=== PATIENT | female | born 1955 | race African-American/Black ===

== ENCOUNTER 2018-03-06 19:52 | Emergency (ER) | payer SELFPAY ==
[2018-03-06 20:01] VITALS: BP 164/87; PULSE 76; TEMP 98.5; BMI 25.0
--- NOTE | 2018-03-06 20:01 | PDOC ---
Rapid Medical Evaluation Chief Complaint: Pain Time Seen by Provider: 03/06/18 19:57 Medical Evaluation: Allergies Allergy/AdvReac Type Severity Reaction Status Date / Time No Known Allergies Allergy Verified 09/22/15 20:27 03/06/18 19:58 CC: Right leg pain and bilateral hand and foot pain. HPI: Pt is a 62 YO female who states that she has "burning" on the tips of her fingers and feet x "months." Pt describes it as burning and rates it at a 5/ 10. Pt also complains of right leg pain x "months." Denies injury/trauma. I have performed a brief in- person evaluation of this patient. Pertinent Physical Findings: Skin: Clear Lungs: Clear Heart: RRR Neuro: Alert Psych: Appropriate affect The patient will proceed to: [facility] for further evaluation Discharge Disposition - Diagnosis Neuropathy - Referrals - Patient Instructions - Post Discharge Activity
[2018-03-06] MEDS ORDERED: diazePAM 5 MG TABLET PO ONE (21:13)
[2018-03-06] MEDS ORDERED: GABAPENTIN 300 MG CAPSULE (FP) PO ONE (21:13)
[2018-03-06] MEDS ORDERED: diazePAM 5 MG TABLET ONE (21:16)
--- NOTE | 2018-03-06 21:18 | PDOC ---
History of Present Illness - General Chief Complaint: Pain Stated Complaint: LEG PAIN Time Seen by Provider: 03/06/18 19:57 History Source: Patient, Old Records Exam Limitations: No Limitations - History of Present Illness Initial Comments: 03/06/18 21:14 HISTORY OF PRESENT ILLNESS: This is a 62-year-old woman with past medical history of hypertension, spinal stenosis, multiple herniated disks presents emergency Department with bilateral hand pain and right foot pain. Patient states the pain is consistent with her usual neuropathy. Patient states she was seen by her primary doctor yesterday and was told she needed evaluation by a spinal surgeon. Patient states she has been refusing A spinal surgeon for the past 7 years but now states willingness to be evaluated. Patient is been taking all of her previously prescribed medication with minimal relief of pain. She denies any saddle anesthesia, urinary retention, incontinence of bladder or bowel. No recent travel or sick contacts. PAST MEDICAL HISTORY: see HPI SURGICAL HISTORY: Denies ALLERGIES: No known drug allergies REVIEW OF SYSTEMS General/Constitutional: Denies fever or chills. Denies weakness, weight change. HEENT: Denies change in vision. Denies ear pain or discharge. Denies sore throat. Cardiovascular: Denies chest pain or shortness of breath. Respiratory: Denies cough, wheezing, or hemoptysis. Gastrointestinal: Denies nausea, vomiting, diarrhea or constipation. Denies rectal bleeding. Genitourinary: Denies dysuria, frequency, or change in urination. Musculoskeletal: Denies joint or muscle swelling or pain. Denies neck or back pain. Skin and breasts: Denies rash or easy bruising. Neurologic: Denies headache, vertigo, loss of consciousness, or loss of sensation. Tingling pain to b/l palms and sole of right foot. Psychiatric: Denies depression or anxiety. Endocrine: Denies increased thirst. Denies abnormal weight change. Hematologic/Lymphatic: Denies anemia, easy bleeding, or history of blood clots. Allergic/Immunologic: Denies hives or skin allergy. Denies latex allergy. PHYSICAL EXAM General Appearance: Well-appearing, appropriately dressed. No apparent distress , no intoxication. HEENT: EOMI, PERRLA, normal ENT inspection, normal voice, TMs normal, pharynx normal. No conjunctival pallor. No photophobia, scleral icterus. Neck: Supple. Trachea midline. No tenderness, rigidity, carotid bruit, stridor , lymphadenopathy, or thyromegaly. Respiratory/Chest: Lungs CTAB. No shortness of breath, chest tenderness, respiratory distress, accessory muscle use. No crackles, rales, rhonchi, stridor , wheezing, dullness Cardiovascular: RRR. S1, S2. No JVD, murmur, bradycardia, tachycardia. Vascular Pulses: Dorsalis-Pedis (R): 2+, Dorsalis-Pedis (L): 2+ Gastrointestinal/Abdominal: Normal bowel sounds. Abdomen soft, non-distended. No tenderness or rebound tenderness. No organomegaly, pulsatile mass, guarding, hernia, hepatomegaly, splenomegaly. Lymphatic: No adenopathy, tenderness. Musculoskeletal/Extremities: Normal inspection. FROM of all extremities, normal capillary refill. Pelvis Stable. No CVA tenderness. No tenderness to extremities, pedal edema, swelling, erythema or deformity. Integumentary: Appropriate color, dry, warm. No cyanosis, erythema, jaundice or rash Neurologic: pier hand II-XII intact. Fully oriented, alert. Appropriate mood/affect. Motor strength 5/5. No appreciable EOM palsy, facial droop or sensory deficit. Past History - Past Medical History Allergies/Adverse Reactions: Allergies Allergy/AdvReac Type Severity Reaction Status Date / Time No Known Allergies Allergy Verified 03/06/18 20:00 Home Medications: Ambulatory Orders Lisinopril [Prinivil] 10 mg PO DAILY 02/08/15 Asthma: Yes Cardiac Disorders: Yes COPD: No HTN: Yes Hypercholesterolemia: Yes - Immunization History Td Vaccination: Yes - Suicide/Smoking/Psychosocial Hx Smoking Status: Yes Smoking History: Never smoked Have you smoked in the past 12 months: Yes Number of Cigarettes Smoked Daily: 10 'Breaking Loose' booklet given: 03/22/14 Hx Alcohol Use: No Drug/Substance Use Hx: No Substance Use Type: None *Physical Exam - Vital Signs Last Vital Signs Temp Pulse Resp BP Pulse Ox 98.5 F 76 18 164/87 98 03/06/18 19:57 03/06/18 19:57 03/06/18 19:57 03/06/18 19:57 03/06/18 19:57 Medical Decision Making - Medical Decision Making 03/06/18 21:14 A/P: 62-year-old woman history of hypertension and spinal stenosis here with acute on chronic pain to bilateral hands and right foot Full Sensation noted to bilateral lower extremities and bilateral upper extremities Ambulatory with steady gait. Full sensation noted to bilateral buttocks Neurontin 300 mg Valium 5 mg orally Discharge home to follow-up with her primary doctor and spinal surgeon *DC/Admit/Observation/Transfer Diagnosis at time of Disposition: Neuropathy - Discharge Dispostion Disposition: HOME Condition at time of disposition: Stable Decision to Admit order: No - Referrals Referrals: Guille Davis MD [Primary Care Provider] - Noman Downing MD, FAANS [Staff Physician] - - Patient Instructions Additional Instructions: Call your health insurance company in the morning to find a spinal surgeon that in network. Follow-up to primary doctor for possible change in your current pain management until he can be evaluated by spinal surgeon. Return to emergency department for any concerns. - Post Discharge Activity Forms/Work/School Notes: Back to Work
== END 2018-03-06 21:31 | disposition home or self-care (01) ==
LOC: JERFT 19:52
DX: G62.9 Polyneuropathy, unspecified (principal); I10 Essential (primary) hypertension; E78.00 Pure hypercholesterolemia, unspecified; M48.00 Spinal stenosis, site unspecified
CPT/HCPCS: 99281-25

== ENCOUNTER 2018-03-07 19:14 | Emergency (ER) | payer SELFPAY ==
[2018-03-07 19:20] VITALS: BP 153/92; PULSE 114; TEMP 98.7; BMI 25.7
--- NOTE | 2018-03-07 19:20 | PDOC ---
Rapid Medical Evaluation Time Seen by Provider: 03/07/18 19:17 Medical Evaluation: Allergies Allergy/AdvReac Type Severity Reaction Status Date / Time No Known Allergies Allergy Verified 03/06/18 20:00 03/07/18 19:17 I have performed a brief in-person evaluation of this patient. The patient presents with a chief complaint of: bleeding to roof of mouth Pertinent physical exam findings: abrasion to hard palate under dentures I have ordered the following: nothing The patient will proceed to the ED for further evaluation. Discharge Disposition - Diagnosis Bleeding in mouth - Referrals - Patient Instructions - Post Discharge Activity
--- NOTE | 2018-03-07 21:49 | PDOC ---
Attending Attestation - HPI HPI: 03/07/18 22:39 The patient is a 62 year old female with past medical history significant for hypertension, spinal stenosis, multiple herniated disks presents to the emergency department with bleeding from the mouth. The patient states she woke up a mouth full of blood, denies trauma or injury to the mouth. Denies airway complication, nausea or vomiting. Allergies: NKA PCP: Guille Davis MD - Physicial Exam PE: 03/07/18 22:43 GENERAL: The patient is in no acute distress. HEAD: Normal with no signs of trauma. EYES: PERRLA, EOMI, sclera anicteric, conjunctiva clear. ENT: Mouth: Center of the hard palate active bleeding, puncture wound with unclear source of the injury, continue bleeding, patient is missing teeth, tobacco on breath. Ears normal, nares patent. Moist mucous membranes. NECK: Normal range of motion, supple without lymphadenopathy, JVD, or masses. LUNGS: Breath sounds equal, clear to auscultation bilaterally. No wheezes, and no crackles. HEART: Tachycardia. Regular rate and rhythm, normal S1 and S2 without murmur, rub or gallop. ABDOMEN: Soft, nontender, normoactive bowel sounds. No guarding, no rebound. No masses palpable. EXTREMITIES: Normal range of motion, no edema. No clubbing or cyanosis. No erythema, or tenderness. NEUROLOGICAL: Alert and Oriented. Cranial nerves II through XII grossly intact. Normal speech. No focal neurological deficits. MUSCULOSKELETAL: Back non-tender to palpation, no CVA tenderness SKIN: Warm, Dry, normal turgor, no rashes or lesions noted. - Medical Decision Making 03/07/18 22:43 Documentation prepared by Nancy Grajeda, acting as esthetician and manager medical spa for Marcela Crews MD. <Nancy Grajeda - Last Filed: 03/07/18 22:39> - Resident Resident Name: Gregorio Jo - ED Attending Attestation I have performed the following: I have examined & evaluated the patient, The case was reviewed & discussed with the resident, I agree w/resident's findings & plan - HPI HPI: 03/07/18 22:10 Pt has a laceration on her hard palate; it is bleeding nonstop; she vomited up 5 cups of blood and we can control only with pressure. Unable to maintain hemostasis despite gauze and surgeicel. 03/07/18 22:12 - Medical Decision Making 03/07/18 22:22 Our ENT oracle identity management consultant is recommending OMFS at [facility]. We will transer to the [place]. 03/07/18 23:00 I tried transfering to [facility]. No dental oracle identity management consultant ; only plastics and they do not feel comfortable taking the patient. I am now transferring to [facility] [place]. 03/08/18 00:44 We controlled the bleeding with SQ epinephrine. Pt refusing transfer and she wants to go home. <Marcela Crews - Last Filed: 03/08/18 00:44>
[2018-03-07 22:21] LABS: HEMATOCRIT 38.6 % (32.4-45.2); HEMOGLOBIN 12.5 GM/dL (10.7-15.3); MCH 30.5 pg (25.7-33.7); MCHC 32.4 g/dl (32.0-36.0); MEAN CELL VOLUME 94.1 fl (80-96); MEAN PLT VOLUME 7.6 fl (7.5-11.1); PLATELET COUNT 311 K/MM3 (134-434); RBC 4.11 M/mm3 (3.60-5.2); RDW 13.6 % (11.6-15.6); WHITE BLOOD COUNT 11.4 K/mm3 (4.0-10.0)
--- NOTE | 2018-03-07 22:39 | PDOC ---
History of Present Illness - General Chief Complaint: Vomiting Blood Stated Complaint: SPITTING UP BLOOD Time Seen by Provider: 03/07/18 19:17 History Source: Patient Exam Limitations: No Limitations - History of Present Illness Initial Comments: 03/07/18 22:03 Patient is 62F with history of spinal stenosis, asthma, HTN, HLD here today complaining of bleeding from her mouth that started upon awakening this morning. Patient denies trauma, history of seizures, blood thinner use. Patient is an active smoker for the past 40 years. Denies fevers, chills, nausea, vomiting. Denies history of incarceration, weight loss, homelessness. No chest pain, shortness of breath, fever, chills. Past History - Past Medical History Allergies/Adverse Reactions: Allergies Allergy/AdvReac Type Severity Reaction Status Date / Time No Known Allergies Allergy Verified 03/07/18 19:20 Home Medications: Ambulatory Orders Lisinopril [Prinivil] 10 mg PO DAILY 02/08/15 Naproxen [Naprosyn -] 500 mg PO BID 03/07/18 Oxycodone HCl/Acetaminophen [Oxycodone-Acetaminophen 10-325] 1 each PO ASDIR 10/18 Rosuvastatin [Crestor -] 20 mg PO DAILY 03/07/18 Asthma: Yes Cardiac Disorders: Yes COPD: No CHF: No HTN: Yes Hypercholesterolemia: Yes - Immunization History Td Vaccination: Yes - Suicide/Smoking/Psychosocial Hx Smoking Status: Yes Smoking History: Current every day smoker Have you smoked in the past 12 months: Yes Number of Cigarettes Smoked Daily: 20 Information on smoking cessation initiated: No 'Breaking Loose' booklet given: 03/22/14 Hx Alcohol Use: No Drug/Substance Use Hx: No Substance Use Type: None Review of Systems - Review of Systems Comments:: 03/07/18 22:40 GENERAL/CONSTITUTIONAL: No fever or chills. No weakness. HEAD, EYES, EARS, NOSE AND THROAT: No change in vision. No sore throat. + hemoptysis CARDIOVASCULAR: No chest pain or shortness of breath RESPIRATORY: No cough, wheezing, or hemoptysis. GASTROINTESTINAL: No nausea, vomiting, diarrhea or constipation. GENITOURINARY: No dysuria, frequency, or change in urination. MUSCULOSKELETAL: No joint or muscle swelling or pain. No neck or back pain. SKIN: No rash NEUROLOGIC: No headache, vertigo, loss of consciousness, or change in strength/ sensation. ENDOCRINE: No increased thirst. No abnormal weight change HEMATOLOGIC/LYMPHATIC: No anemia, easy bleeding, or history of blood clots. ALLERGIC/IMMUNOLOGIC: No hives or skin allergy. *Physical Exam - Vital Signs Last Vital Signs Temp Pulse Resp BP Pulse Ox 98.7 F 114 H 18 153/92 99 03/07/18 19:17 03/07/18 19:17 03/07/18 19:17 03/07/18 19:17 03/07/18 19:17 - Physical Exam Comments: 03/07/18 22:42 GENERAL: Awake, alert, and fully oriented, in no acute distress, blood on shirt and pants, cup full of blood at bedside. HEAD: No signs of trauma, normocephalic, atraumatic EYES: PERRLA, EOMI, sclera anicteric, conjunctiva clear ENT: Auricles normal inspection, hearing grossly normal, nares patent, oropharynx bloody, small source of bleeding on hard palate, patient protecting airway NECK: Normal ROM, supple, no lymphadenopathy, JVD, or masses LUNGS: No distress, speaks full sentences, clear to auscultation bilaterally HEART: Regular rate and rhythm, normal S1 and S2, no murmurs, rubs or gallops, peripheral pulses normal and equal bilaterally. ABDOMEN: Soft, nontender, normoactive bowel sounds. No guarding, no rebound. No masses EXTREMITIES: Normal inspection, Normal range of motion, no edema. No clubbing or cyanosis. NEUROLOGICAL: Cranial nerves II through XII grossly intact. Normal speech, walks with limp, stable, no focal sensorimotor deficits SKIN: Warm, Dry, normal turgor, no rashes or lesions noted. ED Treatment Course - LABORATORY CBC & Chemistry Diagram: 03/07/18 22:10 03/07/18 22:10 - RADIOLOGY Radiology Studies Ordered: Category Date Time Status CXRPORT [CHEST X-RAY PORTABLE*] [RAD] Stat Radiology 03/07/18 21:42 Ordered Medical Decision Making - Medical Decision Making 03/07/18 22:44 Patient is 62F with history of spinal stenosis, asthma, HTN, HLD here today with bleeding from mouth. Vital signs notable for tachycardia, BP stable. Believe patient is most likely agitated instead of in early shock secondary to blood loss. DDx includes, but is not limited to: abrasion, cancer, denture irritation. 10 minutes of pressure held, bleeding not controlled. Patient refusing additional pressure held. Will evaluate with cbc, cmp, pt/inr, cxr to look for possible causes of refractory bleeding and complications into airway. ENT paged, d/w Dr Perez, who suggest transfer as we do not have onsite coverage for ENT today. [facility] paged. 03/07/18 23:29 Transfer declined for [facility]. [facility] contacted, they suggest epinephrine injection. Give 150mcg of epi into roof of mouth around bleeding, bleeding controlled for now, will monitor. 03/07/18 23:43 Patient refusing to hold pressure, asking to leave, pulling out IV. Will AMA. Will advise patient to follow up with ENT or another hospital as soon as possible. Patient instructed that she is welcome to return if she desires. Patient expressed understanding, walking with steady gait. *DC/Admit/Observation/Transfer Diagnosis at time of Disposition: Bleeding in mouth - Discharge Dispostion Disposition: AGAINST MEDICAL ADVICE Condition at time of disposition: Good Decision to Admit order: No - Referrals Referrals: Guille Davis MD [Primary Care Provider] - Curt Quintana MD [Staff Physician] - - Patient Instructions Printed Discharge Instructions: DI for Mouth Lesions Additional Instructions: You left today from the hospital against medical advice. You are welcome to return at any time. Please call ENT tomorrow morning or go to another hospital. - Post Discharge Activity
[2018-03-07 22:53] LABS: ALBUMIN 4.1 g/dl (3.4-5.0); ALK PHOS 79 U/L (45-117); ANION GAP 8 MMOL/L (8-16); BILIRUBIN,TOTAL 0.3 mg/dL (0.2-1); BLOOD UREA NITROGEN 11 mg/dL (7-18); CALCIUM 9.8 mg/dL (8.5-10.1); CHLORIDE 106 mmol/L (98-107); CO2 26 mmol/L (21-32); CREATININE 0.6 mg/dL (0.55-1.3); GLUCOSE,RANDOM 83 mg/dL (74-106); POTASSIUM 4.6 mmol/L (3.5-5.1); SGOT/AST 39 U/L (15-37); SGPT/ALT 30 U/L (13-61); SODIUM 140 mmol/L (136-145); TOT PROT 8.4 g/dl (6.4-8.2)
[2018-03-07 22:54] LABS: INR 1.08 (0.83-1.09); PROTHROMBIN TIME (PATIENT) 12.8 SEC (9.7-13.0)
[2018-03-07] MEDS ORDERED: EPINEPHrine 1:1,000 1 MG/1 ML - 30ML VIAL (INJECTION) SQ ONE (23:08)
[2018-03-07] MEDS ORDERED: EPINEPHrine/PF 1 MG/1 ML (1:1,000) AMPULE ONE (23:11)
[2018-03-07] MEDS ORDERED: LORazepam 2 MG/ML SDV VIAL ONE (23:15)
== END 2018-03-07 23:50 | disposition left against medical advice (07) ==
LOC: JER 19:14
PROC: 3E023GC Introduction of Other Therapeutic Substance into Muscle, Percutaneous Approach (ICD-10-PCS; principal; 2018-03-07)
PROC: 3E033NZ Introduction of Analgesics, Hypnotics, Sedatives into Peripheral Vein, Percutaneous Approach (ICD-10-PCS; 2018-03-07)
DX: K13.79 Other lesions of oral mucosa (principal); S01.512A Laceration without foreign body of oral cavity, initial encounter; X58.XXXA Exposure to other specified factors, initial encounter; Y93.89 Activity, other specified; Y92.032 Bedroom in apartment as the place of occurrence of the external cause; Y99.8 Other external cause status; I10 Essential (primary) hypertension; E78.5 Hyperlipidemia, unspecified; J45.909 Unspecified asthma, uncomplicated; M48.00 Spinal stenosis, site unspecified; F17.210 Nicotine dependence, cigarettes, uncomplicated
CPT/HCPCS: 36415; 71045-TC-FY; 80053; 85027; 85610; 99282-25

== ENCOUNTER 2018-03-12 14:50 | Emergency (ER) | payer OTHER ==
[2018-03-12 15:02] VITALS: BP 107/67; PULSE 100; TEMP 98; BMI 25.7
[2018-03-12] MEDS ORDERED: KETOROLAC TROMETHAMINE 60 MG/2 ML VIAL IM ONE (16:02)
[2018-03-12] MEDS ORDERED: MECLIZINE HCL 25 MG TABLET (FP) PO ONE (16:03)
[2018-03-12] MEDS ORDERED: IBUPROFEN 400 MG TABLET (FP) PO ONE ×2 (16:06→16:20)
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
[2018-03-12] MEDS ORDERED: KETOROLAC TROMETHAMINE 60 MG/2 ML VIAL ONE (16:20)
[2018-03-12] MEDS ORDERED: MECLIZINE HCL 25 MG TABLET (FP) ONE (16:22)
== END 2018-03-12 17:54 | disposition home or self-care (01) ==
LOC: JERFT 14:50
DX: M54.2 Cervicalgia (principal); V43.52XA Car driver injured in collision with other type car in traffic accident, initial encounter; Y93.89 Activity, other specified; Y92.410 Unspecified street and highway as the place of occurrence of the external cause; I10 Essential (primary) hypertension; J45.909 Unspecified asthma, uncomplicated; F99 Mental disorder, not otherwise specified; E78.00 Pure hypercholesterolemia, unspecified; F17.210 Nicotine dependence, cigarettes, uncomplicated
CPT/HCPCS: 70450-TC; 71046-TC-FY; 72125-TC; 99281-25

== ENCOUNTER 2024-05-30 01:32 | Observation (INO) | payer OTHER ==
[2024-05-30 02:08] LABS: BASO % 0.4 % (0-2.0); EOS % 2.2 % (0-4.5); HEMATOCRIT 36.7 % (32.4-45.2); HEMOGLOBIN 12.1 GM/dL (10.7-15.3); MCH 30.3 pg (25.7-33.7); MEAN CELL VOLUME 91.8 fl (80-96); MEAN PLT VOLUME 7.2 fl (7.5-11.1); MONO % 9.6 % (3.8-10.2); NEUT % 59.8 % (42.8-82.8); PLATELET COUNT 269 10^3/uL (134-434); RDW 14.8 % (11.6-15.6); WHITE BLOOD COUNT 7.6 K/mm3 (4.0-10.0)
[2024-05-30 02:28] LABS: POTASSIUM 3.7 mmol/L (3.5-5.1)
[2024-05-30 02:30] LABS: ALBUMIN 4.2 g/dl (3.4-5.0); BLOOD UREA NITROGEN 9.7 mg/dL (7-18)
[2024-05-30 02:31] LABS: MAGNESIUM 1.7 mg/dL (1.8-2.4)
[2024-05-30 02:34] LABS: CREATININE 0.6 mg/dL (0.55-1.3)
[2024-05-30 02:35] LABS: BILIRUBIN,TOTAL 0.4 mg/dL (0.2-1); TOT PROT 7.5 g/dl (6.4-8.2)
[2024-05-30 02:46] LABS: INR 0.99 (0.83-1.09); PROTHROMBIN TIME (PATIENT) 11.2 SEC (9.7-13.0)
[2024-05-30] MEDS ORDERED: ACETAMINOPHEN INJECTION 100 ML ONE (02:46)
[2024-05-30 02:49] LABS: ACTIVATED PTT 32.3 SECONDS (25.2-36.5)
[2024-05-30] MEDS: ACETAMINOPHEN 1000 MG/100 ML BAG IVPB ONE (03:00)
[2024-05-30] MEDS ORDERED: MAG HYDROX/AL HYDROX/SIMETH 30 ML UNIT-DOSE CUP ONE (04:30)
[2024-05-30] MEDS ORDERED: FAMOTIDINE 20 MG/50 ML IVPB 20 MG/50 ML MG IVPB ONE (04:30)
[2024-05-30] MEDS: FAMOTIDINE 20 MG/50 ML IVPB 20 MG/50 ML MG IVPB ONE (04:48)
[2024-05-30] MEDS: MAG HYDROX/AL HYDROX/SIMETH 30 ML UNIT-DOSE CUP PO ONE (04:48)
[2024-05-30] MEDS ORDERED: oxyCODONE HCL 5 MG TABLET ONE (06:17)
[2024-05-30] MEDS: oxyCODONE HCL 5 MG TABLET PO ONE (06:22)
[2024-05-30 08:55] LABS: BASO % 0.7 % (0-2.0); EOS % 2.5 % (0-4.5); HEMATOCRIT 38.1 % (32.4-45.2); HEMOGLOBIN 12.5 GM/dL (10.7-15.3); LYMPH % 31.4 % (8-40); MCH 30.3 pg (25.7-33.7); MCHC 32.8 g/dl (32.0-36.0); MEAN CELL VOLUME 92.5 fl (80-96); MEAN PLT VOLUME 7.1 fl (7.5-11.1); MONO % 9.3 % (3.8-10.2); NEUT % 56.1 % (42.8-82.8); PLATELET COUNT 270 10^3/uL (134-434); RBC 4.11 M/mm3 (3.60-5.2); RDW 14.5 % (11.6-15.6); WHITE BLOOD COUNT 7.1 K/mm3 (4.0-10.0)
[2024-05-30 08:59] LABS: POTASSIUM 3.6 mmol/L (3.5-5.1)
[2024-05-30] MEDS ORDERED: PATIENT'S OWN MEDICATION (NON-FORMULARY) (Oxycodone Hcl/Acetaminophen [Endocet 10-325 Mg T PO PRN (08:59)
[2024-05-30] MEDS ORDERED: hydrOXYzine PAMOATE 25 MG CAPSULE (FP) PO PRN (08:59)
[2024-05-30 09:01] LABS: CALCIUM 10.1 mg/dL (8.5-10.1)
[2024-05-30 09:02] LABS: ALBUMIN 3.9 g/dl (3.4-5.0); BLOOD UREA NITROGEN 9.1 mg/dL (7-18); MAGNESIUM 1.7 mg/dL (1.8-2.4)
[2024-05-30 09:05] LABS: CREATININE 0.5 mg/dL (0.55-1.3); PHOSPHOROUS 3.7 mg/dL (2.5-4.9)
[2024-05-30 09:06] LABS: BILIRUBIN,TOTAL 0.4 mg/dL (0.2-1)
[2024-05-30 09:08] LABS: TOT PROT 7.5 g/dl (6.4-8.2)
[2024-05-30] MEDS ORDERED: LISINOPRIL 40 MG PO SCH (10:00)
[2024-05-30] MEDS ORDERED: PATIENT'S OWN MEDICATION (NON-FORMULARY) (Amlodipine Bes/Olmesartan Med [Amlodipine-Olmesa PO SCH (10:00)
[2024-05-30] MEDS: DULoxetine HCL 30 MG CAPSULE.DR PO SCH (10:07)
[2024-05-30] MEDS: ROSUVASTATIN CA 5 MG TABLET PO SCH (10:07)
[2024-05-30] MEDS: HEPARIN NA (PORCINE) 5,000 UNITS/ML 1ML VIAL SQ SCH (10:07)
[2024-05-30] MEDS: amLODIPine BESYLATE 10 MG TABLET (FP) PO SCH (10:07)
[2024-05-30 10:49] VITALS: BMI 21.7
[2024-05-30] MEDS: oxyCODONE HCL 5 MG TABLET PO PRN (11:06)
[2024-05-30] MEDS: GABAPENTIN 300 MG CAPSULE PO SCH (14:11)
[2024-05-30] MEDS: CELECOXIB 200 MG CAPSULE PO SCH (14:11)
[2024-05-30] MEDS: ACETAMINOPHEN 325 MG TABLET (FP) PO PRN (17:00)
[2024-05-31 03:27] VITALS: RESP 18
[2024-05-31] MEDS: MAGNESIUM OXIDE 400 MG TABLET (FP) PO ONE (12:23)
[2024-05-31] MEDS ORDERED: ACETAMINOPHEN 325 MG TABLET (FP) PO PRN (12:47)
[2024-05-31] MEDS: oxyCODONE HCL 5 MG TABLET PO PRN (13:20)
[2024-06-01 07:45] LABS: POTASSIUM 3.9 mmol/L (3.5-5.1)
[2024-06-01 07:47] LABS: BASO % 0.5 % (0-2.0); EOS % 1.8 % (0-4.5); MCH 30.7 pg (25.7-33.7); MCHC 33.2 g/dl (32.0-36.0); MEAN CELL VOLUME 92.5 fl (80-96); MEAN PLT VOLUME 7.2 fl (7.5-11.1); MONO % 9.4 % (3.8-10.2); NEUT % 59.3 % (42.8-82.8); PLATELET COUNT 277 10^3/uL (134-434); RBC 3.89 M/mm3 (3.60-5.2); RDW 14.5 % (11.6-15.6); WHITE BLOOD COUNT 7.4 K/mm3 (4.0-10.0)
[2024-06-01 07:51] LABS: ALBUMIN 3.6 g/dl (3.4-5.0); CALCIUM 9.6 mg/dL (8.5-10.1); MAGNESIUM 1.8 mg/dL (1.8-2.4)
[2024-06-01 07:52] LABS: PHOSPHOROUS 3.6 mg/dL (2.5-4.9)
[2024-06-01 07:54] LABS: BILIRUBIN,TOTAL 0.4 mg/dL (0.2-1); CREATININE 0.6 mg/dL (0.55-1.3); TOT PROT 6.9 g/dl (6.4-8.2)
[2024-06-01] MEDS ORDERED: REGADENOSON 0.4 MG/5 ML PRE-FILLED SYRINGE IVPUSH ONE (12:07)
[2024-06-01] MEDS: REGADENOSON 0.4 MG/5 ML PRE-FILLED SYRINGE IVPUSH ONE (12:40)
[2024-06-01 14:02] VITALS: BP 141/86; PULSE 84; TEMP 97.7
== END 2024-06-01 17:28 | disposition home or self-care (01) ==
LOC: JER 01:32 → JERBED 05:18 → J4W 09:30
PROVIDERS: ADMIT Internal Medicine; ATTEND Internal Medicine
PROC: 3E033NZ Introduction of Analgesics, Hypnotics, Sedatives into Peripheral Vein, Percutaneous Approach (ICD-10-PCS; principal; 2024-05-30)
PROC: 3E033GC Introduction of Other Therapeutic Substance into Peripheral Vein, Percutaneous Approach (ICD-10-PCS; 2024-05-30)
PROC: 3E023GC Introduction of Other Therapeutic Substance into Muscle, Percutaneous Approach (ICD-10-PCS; 2024-05-30)
DX: R07.9 Chest pain, unspecified (principal); J45.909 Unspecified asthma, uncomplicated; I10 Essential (primary) hypertension; M79.7 Fibromyalgia; E78.5 Hyperlipidemia, unspecified; M19.90 Unspecified osteoarthritis, unspecified site; F17.210 Nicotine dependence, cigarettes, uncomplicated
CPT/HCPCS: 0241U-QW; 36415; 71045-TC-FY; 78452-TC; 80053; 83735; 84100; 84484; 85025; 85610; 85730; 86850; 86900; 86901; 93005; 93010; 93017; 93306-TC; 96365; 96372; 96375; 99285-25; A9502; G0378; J0131; J1644; J2785

== ENCOUNTER 2024-08-19 22:37 | Emergency (ER) | payer OTHER ==
[2024-08-19 22:49] VITALS: BP 149/90; PULSE 83; RESP 20; TEMP 98.2; BMI 19.7
== END 2024-08-20 00:12 | disposition home or self-care (01) ==
LOC: JER 22:37
DX: S92.422A Displaced fracture of distal phalanx of left great toe, initial encounter for closed fracture (principal); W52.XXXA Crushed, pushed or stepped on by crowd or human stampede, initial encounter
CPT/HCPCS: 73630-TC-LT; 99283-25